=== PATIENT | female | born 1955 | race Caucasian/White ===

== ENCOUNTER 2019-10-02 12:59 | Outpatient (CLI) | payer BC, SELFPAY ==
[2019-10-02 13:10] LABS: Basophils Absolute Auto 0.1 K/mm3 (0.0-0.1); Basophils Percent Auto 1.1 % (0.2-1.2); Eosinophils Absolute Auto 0.1 K/mm3 (0-0.3); Eosinophils Percent Auto 1.3 % (0-4.4); Hematocrit 45.8 % (37.0-47.0); Immature Granulocyte Absolute 0.01 K/mm3 (0.00-0.031); Immature Granulocyte Percent A 0.1 % (0-0.5); Lymphocytes Absolute Auto 1.95 K/mm3 (0.9-3.2); Lymphocytes Percent Auto 25.9 % (18.3-44.2); Mean Corpuscular HGB Conc 32.8 g/dl (32-36); Mean Corpuscular Hemoglobin 31.5 pg (26-34); Mean Corpuscular Volume 96.2 fl (80-100); Mean Platelet Volume 9.4 fl (7.4-10.4); Monocytes Absolute Auto 0.5 K/mm3 (0.1-0.6); Neutrophils Absolute Auto 4.9 K/mm3 (1.3-6.7); Neutrophils Percent Auto 65.6 % (45.5-73.1); Platelet Count Result 239 k/mm3 (150-375); Red Blood Count 4.76 M/mm3 (4.2-5.4); Red Cell Distribution Width 13.2 % (11.5-14.5); White Blood Count 7.5 K/mm3 (4.5-10.0)
[2019-10-02 16:20] LABS: Iron 94 ug/dL (37-170)
[2019-10-02 16:30] LABS: Percent Iron Saturation 30 % (20-50)
== END 2019-10-02 13:00 | disposition home or self-care (01) ==
LOC: ANHLAB 13:01
PROVIDERS: PCP Family Medicine; Visit Provider Internal Medicine Hematology & Oncology
DX: D50.0 Iron deficiency anemia secondary to blood loss (chronic) (principal)
CPT/HCPCS: 36415; 82728; 83540; 83550; 85025

== ENCOUNTER 2020-05-07 13:52 | Outpatient (CLI) | payer BC, SELFPAY ==
--- NOTE | ~2020-05-07 | MM_ITS ---
EXAMINATION: MM screening [facility] BI w breonna HISTORY: Screening mammogram TECHNIQUE: Craniocaudal and mediolateral oblique 3-D tomosynthesis images were obtained and synthetic 2-D images were generated. CAD analysis was submitted and interpreted. COMPARISON: 05/01/2019, 04/17/2019, 04/12/2018, 03/22/2017 BREAST PARENCHYMAL COMPOSITION: There are scattered areas of fibroglandular density. FINDINGS: There is no evidence of suspicious mass, calcification, or architectural distortion to sugg est malignancy in either breast. There has been no suspicious interval change. IMPRESSION: 1. No mammographic evidence of malignancy. 2. Recommend routine screening mammography in one year. BI-RADS Category 1: Negative Reviewed, dictated and finalized at location A. BOTOMY PROGRAM COORDINATOR
== END 2020-05-07 13:53 | disposition home or self-care (01) ==
LOC: ANHIMG 13:55
PROVIDERS: PCP Family Medicine; Visit Provider Obstetrics & Gynecology
DX: Z12.31 Encounter for screening mammogram for malignant neoplasm of breast (principal)
CPT/HCPCS: 77063; 77067

== ENCOUNTER 2020-09-29 13:14 | Outpatient (CLI) | payer MEDICARE, OTHER, SELFPAY ==
[2020-09-29 13:37] LABS: Basophils Absolute Auto 0.1 K/mm3 (0.0-0.1); Eosinophils Absolute Auto 0.2 K/mm3 (0-0.3); Eosinophils Percent Auto 2.1 % (0-4.4); Hematocrit 46.9 % (37.0-47.0); Hemoglobin 15.6 g/dL (12.0-15.0); Immature Granulocyte Absolute 0.01 K/mm3 (0.00-0.031); Immature Granulocyte Percent A 0.1 % (0-0.5); Lymphocytes Absolute Auto 1.99 K/mm3 (0.9-3.2); Lymphocytes Percent Auto 28.4 % (18.3-44.2); Mean Corpuscular HGB Conc 33.3 g/dl (32-36); Mean Corpuscular Hemoglobin 31.3 pg (26-34); Mean Corpuscular Volume 94.2 fl (80-100); Mean Platelet Volume 9.7 fl (7.4-10.4); Monocytes Absolute Auto 0.4 K/mm3 (0.1-0.6); Monocytes Percent Auto 5.7 % (2.6-8.5); Neutrophils Absolute Auto 4.4 K/mm3 (1.3-6.7); Neutrophils Percent Auto 62.7 % (45.5-73.1); Platelet Count Result 229 k/mm3 (150-375); Red Blood Count 4.98 M/mm3 (4.2-5.4); Red Cell Distribution Width 13.1 % (11.5-14.5)
[2020-09-29 16:53] LABS: Iron 196 ug/dL (37-170)
[2020-09-29 17:04] LABS: Alanine Aminotransferase 17 U/L (4-35); Albumin Level 4.3 g/dL (3.5-5.1); Alkaline Phosphatase 64 U/L (38-126); Anion Gap 6 mmol/L (8-16); Aspartate Amino Transferase 22 U/L (14-36); Bilirubin,Total 0.6 mg/dL (0.2-1.3); Blood Urea Nitrogen 17 mg/dL (7-17); Carbon Dioxide 29 mmol/L (22-30); Chloride 103 mmol/L (98-107); Estimated Glomerular Filt Rate > 60; Glucose 90 mg/dL (65-105); Sodium 138 mmol/L (137-145)
[2020-09-29 17:15] LABS: Percent Iron Saturation 71 % (20-50)
== END 2020-09-29 13:15 | disposition home or self-care (01) ==
LOC: ANHLAB 13:17
PROVIDERS: PCP Family Medicine; Visit Provider Internal Medicine Hematology & Oncology
DX: D50.0 Iron deficiency anemia secondary to blood loss (chronic) (principal)
CPT/HCPCS: 36415; 80053; 82728; 83540; 83550; 85025

== ENCOUNTER 2020-12-10 13:08 | Outpatient (CLI) | payer MEDICARE, OTHER, SELFPAY ==
[2020-12-10 13:30] LABS: Basophils Absolute Auto 0.1 K/mm3 (0.0-0.1); Eosinophils Absolute Auto 0.2 K/mm3 (0-0.3); Eosinophils Percent Auto 2.1 % (0-4.4); Hematocrit 45.2 % (37.0-47.0); Hemoglobin 14.8 g/dL (12.0-15.0); Immature Granulocyte Absolute 0.01 K/mm3 (0.00-0.031); Immature Granulocyte Percent A 0.1 % (0-0.5); Lymphocytes Percent Auto 28.3 % (18.3-44.2); Mean Corpuscular HGB Conc 32.7 g/dl (32-36); Mean Corpuscular Hemoglobin 31.1 pg (26-34); Mean Platelet Volume 9.3 fl (7.4-10.4); Monocytes Absolute Auto 0.4 K/mm3 (0.1-0.6); Monocytes Percent Auto 5.5 % (2.6-8.5); Neutrophils Absolute Auto 4.4 K/mm3 (1.3-6.7); Platelet Count Result 232 k/mm3 (150-375); Red Blood Count 4.76 M/mm3 (4.2-5.4); Red Cell Distribution Width 12.9 % (11.5-14.5); White Blood Count 7.1 K/mm3 (4.5-10.0)
[2020-12-10 17:03] LABS: Iron 110 ug/dL (37-170)
[2020-12-10 17:08] LABS: Alanine Aminotransferase 22 U/L (4-35); Albumin Level 4.3 g/dL (3.5-5.1); Alkaline Phosphatase 67 U/L (38-126); Anion Gap 6 mmol/L (8-16); Aspartate Amino Transferase 23 U/L (14-36); Bilirubin,Total 0.8 mg/dL (0.2-1.3); Blood Urea Nitrogen 19 mg/dL (7-17); Calcium 9.6 mg/dL (8.4-10.2); Carbon Dioxide 27 mmol/L (22-30); Chloride 105 mmol/L (98-107); Estimated Glomerular Filt Rate > 60; Glucose 89 mg/dL (65-110); Potassium 3.8 mmol/L (3.4-5.0); Sodium 138 mmol/L (137-145)
[2020-12-10 17:37] LABS: Percent Iron Saturation 41 % (20-50)
== END 2020-12-10 13:09 | disposition home or self-care (01) ==
LOC: ANHLAB 13:12
PROVIDERS: PCP Family Medicine; Visit Provider Internal Medicine Hematology & Oncology
DX: D50.0 Iron deficiency anemia secondary to blood loss (chronic) (principal)
CPT/HCPCS: 36415; 80053; 82728; 83540; 83550; 85025

== ENCOUNTER 2021-05-13 09:53 | Outpatient (CLI) | payer MEDICARE, OTHER, SELFPAY ==
--- NOTE | ~2021-05-13 | MM_ITS ---
EXAMINATION: MM screening [facility] BI w breonna HISTORY: Screening mammogram TECHNIQUE: Craniocaudal and mediolateral oblique 3-D tomosynthesis images were obtained and synthetic 2-D images were generated. CAD analysis was submitted and interpreted. COMPARISON: 05/07/2020, 05/01/2019, 04/17/2019 BREAST PARENCHYMAL COMPOSITION: There are scattered areas of fibroglandular density. FINDINGS: There is no evidence of suspicious mass, calcification, or architectural distortion to sugg est malignancy in either breast. There has been no suspicious interval change. IMPRESSION: 1. No mammographic evidence of malignancy. 2. Recommend routine screening mammography in one year. BI-RADS Category 1: Negative Reviewed, dictated and finalized at location A. PROCEDURES
== END 2021-05-13 09:54 | disposition home or self-care (01) ==
LOC: ANHIMG 09:57
PROVIDERS: PCP Family Medicine; Visit Provider Obstetrics & Gynecology
DX: Z12.31 Encounter for screening mammogram for malignant neoplasm of breast (principal)
CPT/HCPCS: 77063; 77067

== ENCOUNTER 2021-06-09 15:08 | Outpatient (CLI) | payer MEDICARE, OTHER, SELFPAY ==
[2021-06-09 15:36] LABS: Basophils Absolute Auto 0.1 K/mm3 (0.0-0.1); Basophils Percent Auto 1.1 % (0.2-1.2); Eosinophils Absolute Auto 0.1 K/mm3 (0-0.3); Eosinophils Percent Auto 1.5 % (0-4.4); Hematocrit 48.3 % (37.0-47.0); Hemoglobin 15.4 g/dL (12.0-15.0); Immature Granulocyte Absolute 0.02 K/mm3 (0.00-0.031); Immature Granulocyte Percent A 0.3 % (0-0.5); Lymphocytes Percent Auto 31.8 % (18.3-44.2); Mean Corpuscular HGB Conc 31.9 g/dl (32-36); Mean Corpuscular Hemoglobin 31.2 pg (26-34); Mean Corpuscular Volume 97.8 fl (80-100); Mean Platelet Volume 9.4 fl (7.4-10.4); Monocytes Absolute Auto 0.4 K/mm3 (0.1-0.6); Monocytes Percent Auto 5.8 % (2.6-8.5); Neutrophils Absolute Auto 4.5 K/mm3 (1.3-6.7); Neutrophils Percent Auto 59.5 % (45.5-73.1); Platelet Count Result 234 k/mm3 (150-375); Red Blood Count 4.94 M/mm3 (4.2-5.4); Red Cell Distribution Width 13.1 % (11.5-14.5); White Blood Count 7.5 K/mm3 (4.5-10.0)
[2021-06-09 16:11] LABS: Iron 162 ug/dL (37-170)
[2021-06-09 16:17] LABS: Alanine Aminotransferase 22 U/L (4-35); Albumin Level 4.6 g/dL (3.5-5.1); Alkaline Phosphatase 70 U/L (38-126); Anion Gap 10 mmol/L (8-16); Aspartate Amino Transferase 23 U/L (14-36); Bilirubin,Total 0.7 mg/dL (0.2-1.3); Blood Urea Nitrogen 17 mg/dL (7-17); Calcium 10.1 mg/dL (8.4-10.2); Carbon Dioxide 28 mmol/L (22-30); Chloride 101 mmol/L (98-107); Estimated Glomerular Filt Rate > 60; Glucose 92 mg/dL (65-110); Sodium 139 mmol/L (137-145)
[2021-06-09 16:24] LABS: Percent Iron Saturation 55 % (20-50)
== END 2021-06-09 15:09 | disposition home or self-care (01) ==
LOC: ANHLAB 15:11
PROVIDERS: PCP Family Medicine; Visit Provider Internal Medicine Hematology & Oncology
DX: D50.0 Iron deficiency anemia secondary to blood loss (chronic) (principal)
CPT/HCPCS: 36415; 80053; 82728; 83540; 83550; 85025

== ENCOUNTER 2021-12-07 13:49 | Outpatient (CLI) | payer MEDICARE, OTHER, SELFPAY ==
[2021-12-07 14:08] LABS: Basophils Absolute Auto 0.1 K/mm3 (0.0-0.1); Basophils Percent Auto 1.1 % (0.2-1.2); Eosinophils Absolute Auto 0.1 K/mm3 (0-0.3); Eosinophils Percent Auto 1.2 % (0-4.4); Hemoglobin 14.8 g/dL (12.0-15.0); Immature Granulocyte Absolute 0.02 K/mm3 (0.00-0.031); Immature Granulocyte Percent A 0.3 % (0-0.5); Lymphocytes Absolute Auto 2.18 K/mm3 (0.9-3.2); Lymphocytes Percent Auto 29.1 % (18.3-44.2); Mean Corpuscular HGB Conc 32.2 g/dl (32-36); Mean Corpuscular Hemoglobin 31.2 pg (26-34); Mean Corpuscular Volume 96.8 fl (80-100); Mean Platelet Volume 9.3 fl (7.4-10.4); Monocytes Absolute Auto 0.5 K/mm3 (0.1-0.6); Monocytes Percent Auto 6.3 % (2.6-8.5); Neutrophils Absolute Auto 4.6 K/mm3 (1.3-6.7); Platelet Count Result 217 k/mm3 (150-375); Red Blood Count 4.75 M/mm3 (4.2-5.4); Red Cell Distribution Width 12.6 % (11.5-14.5); White Blood Count 7.5 K/mm3 (4.5-10.0)
[2021-12-07 14:41] LABS: Iron 108 ug/dL (37-170)
[2021-12-07 14:51] LABS: Percent Iron Saturation 36 % (20-50)
== END 2021-12-07 13:50 | disposition home or self-care (01) ==
LOC: ANHLAB 13:52
PROVIDERS: PCP Family Medicine; Visit Provider Internal Medicine Hematology & Oncology
DX: D50.0 Iron deficiency anemia secondary to blood loss (chronic) (principal)
CPT/HCPCS: 36415; 82728; 83540; 83550; 85025

== ENCOUNTER 2022-05-18 13:49 | Outpatient (CLI) | payer MEDICARE, OTHER, SELFPAY ==
--- NOTE | ~2022-05-18 | DEXA_ITS ---
Bone Density Report Name: VARINDER CRAWLEY Age: 66 Sex: Female Ethnicity: White Date of : 1955 Indication: postmenopausal; screening for osteoporosis; height loss; inflammatory bowel disease; history of glucocorticoids; secondary osteoporosis; Referring Provider: NINI MCCARTHY Study: Bone densitometry was performed. Exam Date: May 18, 2022 Accession number: [id number] Bone Density: Region BMD T-score Z-score Classification AP Spine(L1-L4) 1.195 1.3 3.2 Normal Femoral Neck (Right) 0.620 -2.1 -0.5 Osteopenia Total Hip (Right) 0.772 -1.4 -0.1 Osteopenia World Health Organization criteria for BMD impression classify patients as: Normal (T-score at or above -1.0), Osteopenia (T-score between -1.0 and -2.5), or Osteoporosis (T-score at or below -2.5). 10-year Fracture Risk(1): Major Osteoporotic Fracture 17% Hip Fracture 3.2% Reported Risk Factors: [place] (), Neck BMD=0.620, BMI=29.8, glucocorticoids, secondary osteoporosis (1) FRAX(R) Version 3.08. Fracture probability calculated for an untreated patient. Fracture probability may be lower if the patient has received treatment. Clinical Information Provided by Patient: Has taken Glucocorticoids Has secondary osteoporosis Has used the following medications: HRT (i.e. estrogen/hormone therapy), Vitamin D, Calcium Has the following medical conditions: Inflammatory bowel diseases Patient maximum height was 61 Menopause Age: 42 No regular weight bearing exercise Onset of menses at age 14 Number of children 1 Impression: The patient has low bone mass, based on the Right Femoral Neck T-score. The patient has an estimated ten-year risk of hip fracture of 3.2% and an estimated ten-year risk of major fracture of 17%, based on the WHO FRAX algorithm. The patient has risk factors, including: history of glucocorticoid therapy. Discussion: BONE DENSITY IS LOW AT ONE OR MORE SKELETAL SITES. THE PATIENT'S BMD AND CLINICAL RISK FACTORS CONTRIBUTE TO THIS PATIENT'S INCREASED RISK OF FRACTURE. This patient's lowest T-score is low at one or more skeletal sites. It meets the World Health Organization's (WHO) criteria for ?low bone mass? (T-score between -1.0 and -2.5). The patient's 10-year risk of hip fracture as calculated by FRAX exceeds the threshold where pharmacological therapy is recommended by the National Osteoporosis Foundation (NOF). However, all treatment decisions require clinical judgment and consideration of individual patient factors, including patient preferences, comorbidities, previous drug use, risk factors not captured in the FRAX model (e.g., frailty, falls, vitamin D deficiency, increased bone turnover, interval significant decline in bone density) and possible under or overestimation of fracture risk by FRAX. The patient should follow a healthful lifestyle (
--- NOTE | ~2022-05-18 | MM_ITS ---
EXAMINATION: MM screening [facility] BI w breonna HISTORY: Screening mammogram TECHNIQUE: Craniocaudal and mediolateral oblique 3-D tomosynthesis images were obtained and synthetic 2-D images were generated. CAD analysis was submitted and interpreted. COMPARISON: 05/13/2021, 05/07/2020 bilateral screening mammogram examinations BREAST PARENCHYMAL COMPOSITION: There are scattered areas of fibroglandular density. FINDINGS: There is no evidence of suspicious mass, calcification, or architectural distortion to sugg est malignancy in either breast. There has been no suspicious interval change. IMPRESSION: 1. No mammographic evidence of malignancy. 2. Recommend routine screening mammography in one year. BI-RADS Category 1: Negative Reviewed, dictated and finalized at location A. TIC MAINTENANCE TECHNICIAN
== END 2022-05-18 13:50 | disposition home or self-care (01) ==
PROVIDERS: PCP Family Medicine; Visit Provider Obstetrics & Gynecology
DX: Z12.31 Encounter for screening mammogram for malignant neoplasm of breast (principal); Z78.0 Asymptomatic menopausal state; Z95.2 Presence of prosthetic heart valve; M85.851 Other specified disorders of bone density and structure, right thigh
CPT/HCPCS: 77063; 77067; 77080

== ENCOUNTER 2022-09-07 13:05 | Outpatient (CLI) | payer MEDICARE, OTHER, SELFPAY ==
[2022-09-07 13:21] LABS: Basophils Absolute Auto 0.1 K/mm3 (0.0-0.1); Basophils Percent Auto 0.7 % (0.2-1.2); Eosinophils Absolute Auto 0.1 K/mm3 (0-0.3); Hematocrit 44.1 % (37.0-47.0); Hemoglobin 14.6 g/dL (12.0-15.0); Immature Granulocyte Absolute 0.02 K/mm3 (0.00-0.031); Immature Granulocyte Percent A 0.2 % (0-0.5); Lymphocytes Absolute Auto 2.02 K/mm3 (0.9-3.2); Lymphocytes Percent Auto 24.7 % (18.3-44.2); Mean Corpuscular HGB Conc 33.1 g/dl (32-36); Mean Corpuscular Hemoglobin 31.6 pg (26-34); Mean Corpuscular Volume 95.5 fl (80-100); Mean Platelet Volume 9.5 fl (7.4-10.4); Monocytes Absolute Auto 0.4 K/mm3 (0.1-0.6); Monocytes Percent Auto 5.1 % (2.6-8.5); Neutrophils Absolute Auto 5.6 K/mm3 (1.3-6.7); Neutrophils Percent Auto 68.3 % (45.5-73.1); Platelet Count Result 241 k/mm3 (150-375); Red Blood Count 4.62 M/mm3 (4.2-5.4); White Blood Count 8.2 K/mm3 (4.5-10.0)
[2022-09-07 15:03] LABS: Iron 87 ug/dL (37-170)
[2022-09-07 15:07] LABS: Alanine Aminotransferase 20 U/L (6-35); Albumin Level 4.4 g/dL (3.5-5.1); Alkaline Phosphatase 65 U/L (38-126); Anion Gap 5 mmol/L (8-16); Aspartate Amino Transferase 20 U/L (14-36); Bilirubin,Total 0.7 mg/dL (0.2-1.3); Blood Urea Nitrogen 19 mg/dL (7-17); Calcium 9.4 mg/dL (8.4-10.2); Carbon Dioxide 30 mmol/L (22-30); Chloride 102 mmol/L (98-107); Estimated Glomerular Filt Rate > 60; Glucose 90 mg/dL (65-110); Potassium 3.9 mmol/L (3.4-5.0); Sodium 137 mmol/L (137-145)
[2022-09-07 15:12] LABS: Percent Iron Saturation 30 % (20-50)
== END 2022-09-07 13:06 | disposition home or self-care (01) ==
LOC: ANHLAB 13:08
PROVIDERS: PCP Family Medicine; Visit Provider Internal Medicine Hematology & Oncology
DX: D50.0 Iron deficiency anemia secondary to blood loss (chronic) (principal)
CPT/HCPCS: 36415; 80053; 82728; 83540; 83550; 85025

== ENCOUNTER 2023-09-12 14:04 | Outpatient (CLI) | payer MEDICARE, OTHER, SELFPAY ==
[2023-09-12 14:24] LABS: Hematocrit 45.5 % (37.0-47.0); Mean Corpuscular Hemoglobin 31.4 pg (26-34); Mean Corpuscular Volume 95.2 fl (80-100); Mean Platelet Volume 9.4 fl (7.4-10.4); Platelet Count Result 241 k/mm3 (150-375); Red Blood Count 4.78 M/mm3 (4.2-5.4); Red Cell Distribution Width 12.5 % (11.5-14.5); White Blood Count 7.9 K/mm3 (4.5-10.0)
[2023-09-12 16:32] LABS: Iron 86 ug/dL (37-170)
[2023-09-12 16:35] LABS: Anion Gap 10 mmol/L (4-12); Blood Urea Nitrogen 21 mg/dL (7-17); Calcium 9.9 mg/dL (8.4-10.2); Carbon Dioxide 25 mmol/L (22-30); Chloride 107 mmol/L (98-107); Estimated Glomerular Filt Rate > 60; Glucose 89 mg/dL (65-110); Potassium 3.9 mmol/L (3.4-5.0); Sodium 142 mmol/L (137-145)
[2023-09-12 16:42] LABS: Percent Iron Saturation 32 % (20-50)
== END 2023-09-12 14:05 | disposition home or self-care (01) ==
LOC: ANHLAB 14:07
PROVIDERS: PCP Family Medicine; Visit Provider Internal Medicine Hematology & Oncology
DX: D50.0 Iron deficiency anemia secondary to blood loss (chronic) (principal)
CPT/HCPCS: 36415; 80048; 82728; 83540; 83550; 85027

== ENCOUNTER 2023-10-03 13:04 | Outpatient (CLI) | payer MEDICARE, OTHER, SELFPAY ==
--- NOTE | ~2023-10-03 | MM_ITS ---
EXAMINATION: MM screening [facility] BI w breonna HISTORY: Screening mammogram TECHNIQUE: Craniocaudal and mediolateral oblique 3-D tomosynthesis images were obtained and synthetic 2-D images were generated. CAD analysis was submitted and interpreted. COMPARISON: 05/18/2022, 05/13/2021 bilateral screening mammogram examination BREAST PARENCHYMAL COMPOSITION: There are scattered areas of fibroglandular density. FINDINGS: There is no evidence of suspicious mass, calcification, or architectural distortion to sugg est malignancy in either breast. There has been no suspicious interval change. IMPRESSION: 1. No mammographic evidence of malignancy. 2. Recommend routine screening mammography in one year. BI-RADS Category 1: Negative Reviewed, dictated and finalized at location A.
== END 2023-10-03 13:05 | disposition home or self-care (01) ==
LOC: ANHIMG 13:06
PROVIDERS: PCP Family Medicine; Visit Provider Obstetrics & Gynecology
DX: Z12.31 Encounter for screening mammogram for malignant neoplasm of breast (principal)
CPT/HCPCS: 77063; 77067

== ENCOUNTER 2023-10-26 11:43 | Outpatient (CLI) | payer MEDICARE, OTHER, SELFPAY ==
[2023-10-31 15:59] LABS: Calprotectin, Stool 137 mcg/g
== END 2023-10-26 11:44 | disposition home or self-care (01) ==
LOC: ANHLAB 11:45
PROVIDERS: PCP Family Medicine; Visit Provider Nurse Practitioner
DX: K58.0 Irritable bowel syndrome with diarrhea (principal); Z87.19 Personal history of other diseases of the digestive system
CPT/HCPCS: 83993

== ENCOUNTER 2023-11-16 07:00 | Outpatient (NON) | payer MEDICARE, OTHER, SELFPAY | END 2023-11-16 07:01 | disposition home or self-care (01) | LOC: ANHLAB 11-17 09:51 | PROVIDERS: PCP Family Medicine; Visit Provider Internal Medicine Gastroenterology | DX: K52.9 Noninfective gastroenteritis and colitis, unspecified (principal) | CPT/HCPCS: 88305 ==

== ENCOUNTER 2023-11-16 10:18 | Day surgery (SDC) | payer MEDICARE, OTHER, SELFPAY ==
[2023-11-10 09:00] VITALS: BMI 27.1
[2023-11-11 09:35] VITALS: BMI 26.6
--- NOTE | 2023-11-16 07:40 | WPDANESEPPF ---
Anes - Initial Pre Proc Eval Procedure: Operation Date: 11/16/23 13:00 Proposed Procedures p Diagnostic Colonoscopy - Rohan Barbosa MD <Clark Dunn, DO - Last Filed: 11/16/23 14:16> Date/Time: 11/16/23 07:40 <Clark Dunn, DO - Last Filed: 11/16/23 14:16> Surgeon: Rohan Barbosa MD <Clark Dunn, DO - Last Filed: 11/16/23 14:16> Pre Op Diagnosis: Noninfective Gastroenteritis and Colitis, IBS <Clark Dunn DO - Last Filed: 11/16/23 14:16> Patient Data Age: 68 Gender: F Height: 1.52 m Weight: 62 kg <Clark Dunn, DO - Last Filed: 11/16/23 14:16> Allergies Allergy/AdvReac Type Severity Reaction Status Date / Time cinnamon Allergy Intermediate oral mouth Verified 11/16/23 11:39 sores and swelling ADULT TOOTHPASTE Allergy Severe SWOLLEN Uncoded 11/16/23 11:39 LIPS AND TONGUE <Clark Dunn, DO - Last Filed: 11/16/23 14:16> Home Medications Medication Instructions Recorded Confirmed Type losartan 100 1 tablet PO DAILY 02/05/21 11/16/23 History mg-hydrochlorothiazide 12.5 mg tablet omeprazole 20 mg capsule,delayed 20 mg PO DAILY 02/05/21 11/16/23 History release simvastatin 20 mg tablet 20 mg PO DAILY 02/05/21 11/16/23 History folic acid 1 mg tablet 1 mg PO DAILY 10/07/21 11/16/23 History verapamil 180 mg tablet,extended 180 mg PO HS 10/07/21 11/16/23 History release eluxadoline 75 mg tablet (Viberzi) 75 mg PO BID #180 tabs 10/20/23 11/16/23 Rx ADVANCED Calcium 1 tablet PO DAILY 11/11/23 11/16/23 History glucosamine 750 mu-jwnzzpnxvjw-zcd 1 tablet PO DAILY 11/11/23 11/16/23 History no1 644 mg-C 30 mg-fritz 1 mg tablet (Osteo Bi-Flex Triple Strength) multivitamin l-pqzrgfii-nnpjmlq 1 tablet PO DAILY 11/11/23 11/16/23 History fumarate 18 mg-vitamin K 25 mcg tablet omega-3 fatty acids 150 mg-fish 1 cap PO DAILY 11/11/23 11/16/23 History oil 400 mg capsule (Fish Oil Pearls) <Clark Dunn DO - Last Filed: 11/16/23 14:16> Patient hx anesthesia problems: none <Seven Leiva CRNA - Last Filed: 11/16/23 12:54> Family hx anesthesia problems: none <Seven Leiva CRNA - Last Filed: 11/16/23 12:54> Results Review: All pre-operative results and documents have been reviewed as part of the pre-operative evaluation. <Clark Dunn DO - Last Filed: 11/16/23 14:16> PMFSH Past Medical History Medical History: Medical History GERD (gastroesophageal reflux disease) Hiatal hernia HLD (hyperlipidemia) Hypertension Irritable bowel syndrome with diarrhea <Clark Dunn DO - Last Filed: 11/16/23 14:16> Surgical History Surgical History: Surgical History History of tubal ligation <Clark Dunn DO - Last Filed: 11/16/23 14:16> Social History Social History: Social History Smoking status: Never smoker Alcohol intake: current Drinks per week: 0 Alcohol use details: RARE, OCCASIONAL HOLIDAY Substance use: never Substance use type: does not use Living arrangements: alone Spiritual care concerns: No <Clark Dunn DO - Last Filed: 11/16/23 14:16> Anes - Eval Final PreProcedure Day of Procedure 11/16/23 07:40 <Clark Dunn DO - Last Filed: 11/16/23 14:16> Patient weight: overweight <Clark Dunn DO - Last Filed: 11/16/23 14:16> Heart: regular rate and rhythm <Clark Dunn DO - Last Filed: 11/16/23 14:16> Lungs: clear to auscultation <Clark Dunn DO - Last Filed: 11/16/23 14:16> Airway: Mallampati scale class II <Clark Dunn DO - Last Filed: 11/16/23 14:16> Neurological: alert and oriented <Amber Randall
[2023-11-16 11:53] VITALS: BP 131/88; PULSE 64; RESP 16; TEMP 36.6; O2SAT 99; BMI 26.4
[2023-11-16] MEDS: LACTATED RINGERS 1,000 ML 150 ML IV CONT (12:18)
--- NOTE | 2023-11-16 13:00 | WPDHPUPDATE1 ---
History and Physical Update Update Date/Time: 11/16/23 13:00 History and Physical has been reviewed, including an updated exam of the patient. There are NO changes in the patient's condition. Risks, benefits, and alternatives have been discussed and questions answered. Patient agrees to proceed with procedure.
[2023-11-16 14:11] VITALS: BP 111/74; PULSE 65; RESP 14; O2SAT 98
--- NOTE | 2023-11-16 14:16 | WPDANESPN ---
Anes - Prog Note Post-Op Date/Time: 11/16/23 14:16 Cardiovascular status: normal Respiratory status: normal Airway patency: baseline Mental status: baseline Post-Op hydration status: normal Vital Signs: Last Vital Signs Temp 36.6 C 11/16/23 11:53 Pulse 64 11/16/23 11:53 Resp 16 11/16/23 11:53 BP 131/88 11/16/23 11:53 Pulse Ox 99 11/16/23 11:53 O2 Del Method Room Air 11/16/23 11:53 Pain Score (VAS): 0 I/O: Intake & Output 11/15/23 11/16/23 11/16/23 23:59 07:59 15:59 Intake Total 300 Balance 300 Post-procedural complaints: none Patient Feedback: Patient satisfied with anesthetic care. Other Findings: Patient vital signs back to baseline. Patient denies nausea and vomiting. Patient's pain under control. Patient OK for discharge.
[2023-11-16 14:21] VITALS: BP 130/84; PULSE 62; RESP 16; O2SAT 98
[2023-11-16 14:31] VITALS: BP 141/89; PULSE 65; RESP 20; O2SAT 99
== END 2023-11-16 14:47 | disposition home or self-care (01) ==
PROVIDERS: PCP Family Medicine; Visit Provider Internal Medicine Gastroenterology
PROC: 0DJD8ZZ Inspection of Lower Intestinal Tract, Via Natural or Artificial Opening Endoscopic (ICD-10-PCS; CPT 45378; principal; 2023-11-16 13:00)
DX: K51.90 Ulcerative colitis, unspecified, without complications (principal); D12.5 Benign neoplasm of sigmoid colon
CPT/HCPCS: 45385; 45380

== ENCOUNTER 2024-09-18 12:45 | Outpatient (CLI) | payer MEDICARE, OTHER, SELFPAY ==
[2024-09-18 13:20] LABS: Basophils Percent Auto 0.5 % (0.2-1.2); Eosinophils Absolute Auto 0.1 K/mm3 (0-0.3); Hematocrit 43.6 % (37.0-47.0); Hemoglobin 14.4 g/dL (12.0-15.0); Immature Granulocyte Absolute 0.01 K/mm3 (0.00-0.031); Immature Granulocyte Percent A 0.1 % (0-0.5); Lymphocytes Absolute Auto 2.06 K/mm3 (0.9-3.2); Lymphocytes Percent Auto 28.3 % (18.3-44.2); Mean Corpuscular Hemoglobin 31.4 pg (26-34); Mean Platelet Volume 9.5 fl (7.4-10.4); Monocytes Absolute Auto 0.4 K/mm3 (0.1-0.6); Neutrophils Absolute Auto 4.7 K/mm3 (1.3-6.7); Neutrophils Percent Auto 64.1 % (45.5-73.1); Platelet Count Result 219 k/mm3 (150-375); Red Blood Count 4.59 M/mm3 (4.2-5.4); Red Cell Distribution Width 13.2 % (11.5-14.5); White Blood Count 7.3 K/mm3 (4.5-10.0)
--- OUTSIDE RECORDS SUMMARY | 2024-09-18 13:49 | XMS_ITS | Clinical Summary ---
Author Organization [facility] Address [address] [place] [address] Care Team Providers Care Hand Fretted Instrument Maker Name Role Phone Kameron Babin MD Primary Care Provider [phone] Allergies Active Allergy Reactions Criticality Noted Date Comments Flavoring Agent Rash,Swelling Low 07/04/2018 Medications verapamil (CALAN SR) 180 mg Sustained Release tablet TK 1 T PO QD WF 1 05/31/2018 Active simvastatin (ZOCOR) 20 mg tablet TK 1 T PO QD HS 2 05/31/2018 Active omeprazole (PriLOSEC) 20 mg Capsule, Delayed Release(E.C.) TK 1 C PO QD 0 05/31/2018 Active losartan-hydroCH LOROthiazide (HYZAAR) 100-12.5 mg tablet TK 1 T PO QD 3 05/31/2018 Active folic acid (FOLVITE) 1 mg tablet TK 1 T PO QD 2 05/31/2018 Active VIBERZI 75 mg Tablet TK 1 T PO BID 5 02/01/2019 Active omega-3 acid ethyl esters (LOVAZA) 1 gram Capsule Take 1,000 mg by mouth. Active Calcium Carbonate-Vit D3-Min 600 mg calcium- 400 unit Tablet Take 1 Tablet by mouth. Active polycarbophil calcium (FIBERCON) 625 mg tablet Take 625 mg by mouth daily. Active Docosahexanoic Acid-Eicosapent 120-180 mg Capsule Take 1,000 mg by mouth. Active Glucosamine-Rocael droitin 250-200 mg Tablet Take 1 Tablet by mouth. Active multivitamin (DAILY-JUAN DIEGO) tablet Take 1 Tablet by mouth daily. Active Active Problems Problem Noted Date Diagnosed Date Ulcerative colitis 10/08/2019 Iron deficiency anemia 07/04/2018 Encounters Date Type Department Care Team Description 08/08/2024 External Device Data [facility] ABSTRACTION Provider, Abstract 08/01/2024 External Device Data [facility]CTION Provider, Abstract 07/31/2024 External Device Data [facility] Provider, Abstract 07/28/2024 External Device Data [facility] Provider, Abstract 07/28/2024 External Device Data [facility] [facility] Provider, Abstract 07/25/2024 External Device Data [facility] Provider, Abstract 07/25/2024 External Device Data [facility] Provider, Abstract 07/11/2024 External Device Data [facility] Provider, Abstract from Last 3 Months Social History Tobacco Use Types Packs/Day Years Used Date Smoking Tobacco: Former Cigarettes 0 07/04/1961 - 07/04/1968 Smokeless Tobacco: Never Tobacco Cessation:Counseling Given: Not Answered Comments No Sex and Gender Information Value Date Recorded Sex Assigned at Not on file 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 Gender Identity Not on file Sexual Orientation Not on file Last Filed Vital Signs Vital Sign Reading Time Taken Comments Blood Pressure 135/85 09/20/2023 1:07 PM CDT Pulse 71 09/20/2023 1:04 PM CDT Temperature 36.9 C (98.5 F) 09/20/2023 1:04 PM CDT Respiratory Rate 18 09/20/2023 1:04 PM CDT Oxygen Saturation 94% 09/20/2023 1:04 PM CDT Inhaled Oxygen Concentration - - Weight 61.2 kg (135 lb) 09/20/2023 1:04 PM CDT Height 152.4 cm (5') 12/15/2021 2:07 PM CDT Body Mass Index 26.37 12/15/2021 2:07 PM CDT Plan of Treatment Upcoming Encounters Date Type Department Care Team (Late st Contact Info) Description 09/25/2024 1:00 PM CDT Office Visit [facility] Oncology and Hematology - [address] [place] [address] Asael Tirado MD [address] [facility] [address] [place] [address] Health Maintenance Due Date Last Done Comments Pre-Diabetes and Diabetes Screening 1955 DTAP/TDAP/TD VACCINES (1 - Tdap) 1974 Traditional Medicare (ACO) A nnual Wellness Visit 1974 COLORECTAL SCREENING 2000 Colorectal Cancer Screening 2000 FIT-DNA Q 3 years 2000 FIT/FOBT Q 1 year 2000 Flex Sig/CT Colonography Q 5 years 2000 PNEUMOCOCCAL VACCINE 50+ YEA RS (1 of 1 - PCV) 2005 ZOSTER VACCINE (1 of 2) 2005 INFLUENZA VACCINE (#1) 2023 02/03/2015 COVID-19 Vaccine (3 - 2023-2 5 season) 2024 08/29/2020, 08/05/2020 BREAST CANCER SCREENING 10/02/2024 10/03/19 24, 10/03/2023, 05/18/2022, Additional history exists OSTEOPOROSIS SCREENING 05/18/2027 05/18/2022 RSV VACCINE (60+ or ) (1 - 1-dose 75+ series) 2030 Insurance MEDICARE PART A AND B GENERIC PAYOR MEDICARE PART A AND B GENERIC PAYOR Care Teams Hand Fretted Instrument Maker Relationship Specialty Start Date End Date Kameron Babin MD [address] [place], [place] [id number] PCP - General Family Practice 06/30/18
--- OUTSIDE RECORDS SUMMARY | 2024-09-18 13:49 | XMS_ITS | Clinical Summary ---
Author Organization [facility] Address [address] [facility] [address] [place] [address] Phone Care Team Providers Care Contour Band Saw Operator Vertical Name Role Phone Kameron Babin MD Unavailable [phone] Rohan Sawyer DO Unavailable [phone] Tonya Hackett APRN, [employer] Unavailable [phone] Allergies Active Allergy Reactions Criticality Noted Date Comments Cinnamon Hives,Swelling High 10/09/2015 Medications omeprazole (PRILOSEC) 20 MG CAPSULE DELAYED RELEASE Take 20 mg by mouth daily. Active verapamil (,CALAN, ISOPTIN,) 20 mg Tablet Take 40 mg by mouth 3 times daily. Active simvastatin (ZOCOR) 20 MG Tablet Take 20 mg by mouth every evening. Active fish oil-omega-3 fatty acids 1000 MG Capsule Take 1,000 mg by mouth daily. Active calcium carbonate-vitami n D 600-400 MG-UNIT Tablet Take 1 Tab by mouth daily. Active Glucosamine-Rocael droitin 250-200 MG Tablet Take 1 Tab by mouth 2 times daily. Active verapamil (COVERA HS) 180 MG CAPSULE SR 24 HR Take 180 mg by mouth daily. Active Meloxicam 15 MG Tablet Take 15 mg by mouth daily. Active Mesalamine 0.375 GM CAPSULE SR 24 HR Take by mouth. Active losartan potassium-hydroc hlorothiazide (HYZAAR) 100-25 MG Tablet Take 1 Tab by mouth daily. Active folic acid (FOLVITE) 1 MG Tablet Take 1 Tab by mouth daily. 90 Tab 3 12/16/2015 Active folic acid (FOLVITE) 1 MG Tablet Take 1 Tab by mouth daily. 30 Tab 3 01/05/2016 Active sulfaSALAzine (AZULFIDINE) 500 MG Tablet Take 2 Tabs by mouth 3 times daily. 180 Tab 2 09/09/2017 Active Immunizations Immunization Administration Dates Next Due Covid-19, Mrna, Lnp-s, Pf, 30 Mcg/0.3 Ml Dose (P fizer) 08/29/2020,08/05/2020 Influenza Vaccine greater than 3 yrs 02/03/2015 Family History Medical History Relation Name Comments Cancer Father Heart Disease Father Hypertension Mother Cancer Paternal Uncle 1 throat Cancer Paternal Uncle 2 ?? 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 Not on file Not on file Not on file Last Filed Vital Signs Vital Sign Reading Time Taken Comments Blood Pressure 120/74 10/09/2015 2:00 PM CDT Pulse 65 10/09/2015 2:00 PM CDT Temperature 35.8 C (96.5 F) 10/09/2015 2:00 PM CDT Respiratory Rate 14 10/09/2015 2:00 PM CDT Oxygen Saturation 96% 10/09/2015 2:00 PM CDT Inhaled Oxygen Concentration - - Weight 62.7 kg (138 lb 3.2 oz) 10/09/2015 2:00 P M CDT Height 157.5 cm (5' 2 ) 10/09/2015 2:00 PM CDT Body Mass Index 25.28 10/09/2015 2:00 PM CDT Plan of Treatment Health Maintenance Due Date Last Done Comments DEXA Bone Density 1955 Hepatitis C Virus (HCV) Screening 1955 TdaP Immunization 1955 Cologuard 2005 Immunochemical Fecal Occult Blood 2005 Mammogram 2005 Zoster Immunization (2 of 3) 05/02/2016 03/07/2016 Pneumococcal Immunization (50+ years) (2 of 2 - PCV) 06/20/2017 06/20/2016, 01/29/2015 Influenza Immunization (#1) 2024 03/0 08/2019, 06/30/2018, 02/17/2017, Additional history exists SARS-COV-2 Immunization ( season) 2024 03/05/2021, 08/29/2020, 08/05/2020 Colonoscopy 05/01/2025 05/01/2015 Colorectal Cancer Screening 05/01/2025 Respiratory Syncytial Virus (RSV) Immunization (Adult) (1 - 1-dose 75+ series) 2030 05/01/2015 Pneumococcal Immunization Combined Discontinued 06/20/2016, 01/29/2015 Hepatitis B Immunization Aged Out No longer eligible based on patient's age to complete this topic Meningococcal Immunization (ACWY) Aged Out No longer eligible based on patient's age to complete this topic Rotavirus Immunization Aged Out No lo nger eligible based on patient's age to complete this topic Procedures Procedure Name Priority Date/Time Associated Diagnosis Comments COLONOSCOPY Routine 05/01/2015 from Last 3 Months or Most Recently Relevant to Health Maintenance Results * COLONOSCOPY (05/01/2015) Kameron Babin MD PROCEDURE/MINOR SURGICAL ORD ERABLES Final Result from Last 3 Months or Most Recently Relevant to Health Maintenance Insurance Care Teams Contour Band Saw Operator Vertical Relationship Specialty Start Date End Date Kameron Babin MD [address] [place] [id number] Family Medicine 10/09/15 Rohan Sawyer DO [address] [place] [id number] Gastroenterology 10/09/15 Tonya Hackett, GUSTAVO, [employer] [address] [place] [id number] Nurse Practitioner Advanced Practice Nurse 10/09/15
--- OUTSIDE RECORDS SUMMARY | 2024-09-18 13:49 | XMS_ITS | Data Portability ---
Author Organization [place] - [facility] [email or web address], Main Office Address [address] [place] [address] Care Team Providers Care Biology Laboratory Assistant Name Role Phone DONN CHAPIN Primary Care Provider DONN CHAPIN Referring Provider [phone] Assessment Encounter Date Assessment Date Assessment LastModified by Organization Details LastModified Time 11/29/2022 11/29/2022 HPI: Patient returns. She is here for a 5 year routine x-ray surveillance of her left total hip arthroplasty. She is now 6 years out in total. Left hip is doing well. In October patient started having pain in her left thigh. At times it was rather severe. She is an extremely active individual and is always cleaning the house or doing other activities. She has a longstanding history of chronic low back pain. She notes that on days where she has cleaning the entire house by the end of the day her back is very painful. Symptoms in the left leg 2 weeks ago went away completely. At this point she is having some symptoms in the right leg. She will get pain radiates down the thigh into the lower leg. Occasionally she will get tingling in the same distribution area. She has a history out blood pressure and was advised not to take anti-inflammato olga. This point her symptoms are intermittent and mild. Again she has a history of low back pain but knows history of radicular symptoms. Physical exam: 67-year-old female alert pleasant. She walks well. She walks upright with a normal gait. She is 4 ft 11 141 lb. Both hips have full range of motion without discomfort. She has ehcg-ms-brinddr e tenderness over both trochanteric bursae to palpation. Mild weakness with abductor testing lateral position both hips. She has normal sensation to both lower extremities light touch. She has motor function to her right lower extremity without any deficits. 2+ knee jerk and ankle jerk bilaterally. Impression: Patient's left total hip arthroplasty which is 6 years out looks excellent on the x-rays. She has no evidence of arthritic changes in right hip x-rays today well. I discussed the patient that her symptoms most likely are being referred from her back. The pelvis does show degenerative changes in her low back and again patient has a history of low back pain especially after a long day of activities. I discussed treatment options with her. Again she is trying to avoid anti-inflammato olga, we talked about using a Medrol Dosepak to see if this might give her some improvement of her symptoms. I did offer her formal physical therapy for her low back as well as her hip bursitis she declined that today. She wished to try the steroids see what improvement she gets from that and then proceed accordingly. I think this is reasonable. If her symptoms do not improve she will call will set up physical therapy. We will see her back in another 5 years for routine x-ray surveillance of the left hip. [email or web address] Not available 11/29/2022 16:11:44 Plan of Treatment Reminders Order Date Submit Date Provider Last Modified By Organization Details Last Modified Time Details Appointments None recorded. Lab None recorded. Referral None recorded. Procedures None recorded. Surgeries None recorded. Imaging XR, hip + pelvis, bilateral 2022 023 [email or web address] [facility] [place], [address], [place], [address], 3 17:56:00 Medication Orders Medrol (Jamey) 4 mg tablets in a dose pack 2022 023 [email or web address] [id number], [address] [facility], [place], [place], [id number], 16:12:01 Patient TargetsNo targets recorded. Patient InstructionsNo instructions recorded. Reason for Referral None Reported. Results Created Date Observation Date Name Description Value Unit Range Abnormal Flag Note LastModifiedBy Organization Detail LastModifiedTime 11/30/19 23 XR, hip + pelvi s, bilat eral No observ ation record ed. [email or web address] [facility] [place] [address], [place], [address], 11/29/2022 16:08:05 Result Notes None recorded. 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 Procedures Surgical History None recorded. Imaging Results Imaging Date Name Status LastModified by Organiz ation Details LastModified Time 11/29/2022 XR, hip + pelvis, bilateral completed [email or web address] [facility] [place] [address], [place], [address], 11/29/2022 16:08:05 Procedure Notes None recorded. Medical Equipment None Reported. Allergies No known drug allergies Medications Name Sig Start Date Stop Date Status Note LastModified by Organization Details LastModified Time celecoxib 200 mg capsule 11/29 completed Not Available Not Available Not Available sulfasalazi ne 500 mg tablet 11/29 completed Not Available Not Available Not Available polyethylen e glycol 3350 17 gram oral powder packet MIX 1 PACKET DIRECTED AND TK PO QAM 11/29 completed Not Available Not Available Not Available meloxicam 15 mg tablet TK 1 T PO QD 11/29 completed Not Available Not Available Not Available prednisone 20 mg tablet TK 3 TS PO D FOR 5 DAYS 11/29 completed Not Available Not Available Not Available verapamil ER (SR) 180 mg tablet,exte nded release TAKE 1 TABLET BY MOUTH EVERY EVENING active Not Available Not Available No t Available oxycodone-a cetaminophe n 5 mg-325 mg tablet 11/29 completed Not Available Not Available Not Available simvastatin 20 mg tablet TAKE 1 TABLET BY MOUTH EVERY EVENING active Not Available Not Available No t Available omeprazole 20 mg capsule,del ayed release TAKE 1 CAPSULE BY MOUTH EVERY EVENING active Not Available Not Available No t Available folic acid 1 mg tablet TAKE 1 TABLET BY MOUTH EVERY DAY active Not Available Not Available No t Available methylpredn isolone 4 mg tablets in a dose pack FOLLOW PACKAGE DIRECTION S active Not Available Not Available No t Available enoxaparin 40 mg/0.4 mL subcutaneou s syringe 11/29 completed Not Available Not Available Not Available Pneumovax-2 3 25 mcg/0.5 mL injection syringe ADM 0.5ML IM UTD 11/29 completed Not Available Not Available Not Available Prilosec OTC 20 mg tablet,cali yed release TK ONE T PO D 11/29 completed Not Available Not Available Not Available nitrofurant oin monohydrate /macrocryst als 100 mg capsule 11/29 completed Not Available Not Available Not Available losartan 100 mg-hydrochl orothiazide 12.5 mg tablet TAKE 1 TABLET BY MOUTH EVERY MORNING active Not Available Not Available No t Available Zostavax (PF) 19,400 unit/0.65 mL subcutaneou s suspension ADM 0.65ML SC UTD 11/29 completed Not Available Not Available Not Available Apriso 0.375 gram capsule,ext ended release TK 1 C PO QD IN THE MORNING 11/29 completed Not Available Not Available Not Available Senexon-S 8.6 mg-50 mg tablet TK 2 TABLETS PO BID 11/29 completed Not Available Not Available Not Available Flulaval Quad 0712-9127 60 mcg (15 mcg x 4)/0.5 mL IM suspension ADM 0.5ML IM UTD 11/29 completed Not Available Not Available Not Available Vitals Date Recorded Body height Body mass index (BMI) Body weight Provider Name and Address Organization Details Last Updated DateTime 11/29/2022 149.86 cm 28.5 kg/m2 16357.52 g BRETT Trujillo [employer] 11/29/2022 15:25:40 Social History Question Answer Notes LastModified by Organizat ion Details LastModified Time Tobacco Smoking Status Never Smoker BRETT Trujillo [place] [employer] 11/29/2022 15:11:09 What Is Your Level Of Alcohol Consumption? None [email or web address] Information not available 11/29/2022 Sex: Unknown Functional Status None recorded. Mental Status None recorded. Family History Relationship Description Onset Age of this Age Resolved Age Notes LastModified by Organization Details LastModified Time Father Heart disease [email or web address] Not available 2022 15:11:22 Father Family history of malignant neoplasm [email or web address] Not available 2022 15:16:32 Father Hypertensive disorder [email or web address] Not available 2022 15:16:59 Sister Family history of stroke [email or web address] Not available 2022 15:16:19 Mother Hypertensive disorder Not available 2022 15:16:59 Paternal Grandmother Diabetes mellitus [email or web address] Not available 2022 15:17:16 Medical History Condition Response ARTHRITIS Y HYPERTENSION Y Gynecological HistoryNo gynecological history recorded. Obstetrics History GPAL:G 0 P 0 0 0 0 Past Encounters Encounter ID Performer Location Encounter Start Date Encounter Closed Date Diagnosis/Indication Diagnosis SNOMED-CT Code Diagnosis ICD10 Code Diagnosis Note [id number] KRISTINA Torres [facility] [place] [address] [facility] [address] [place] [address] 11/29/2022 14:35:26 11/29/2022 17:56:00 History of total replacement of bilateral hip joints 1928173924 342490 Z96.643 Health Concerns Section Related Observation LastModified by Organization Detai ls LastModified Time None Recorded Concern Status LastModified by Organization Details LastModified Time None Recorded Advance Directives Directive None Recorded Payers Encounter Date Sequence Insurance Name Policy Number Policy Oliva Covered Member ID Oliva Member ID Guarantor Name 11/29/2022 1 [place] Corry Wynne [id number] Corry Wynne 11/29/2022 2 [employer] (MEDICARE SUPPLEMENT) Corry Wynne [id number] Corry Wynne OBGyn Episode No OBEpisode recorded.
[2024-09-18 14:27] LABS: Iron 109 ug/dL (37-170)
[2024-09-18 14:36] LABS: Percent Iron Saturation 40 % (20-50)
[2024-09-18 15:04] LABS: Anion Gap 8 mmol/L (4-12); Blood Urea Nitrogen 21 mg/dL (7-17); Calcium 9.5 mg/dL (8.4-10.2); Carbon Dioxide 27 mmol/L (22-30); Chloride 104 mmol/L (98-107); Estimated Glomerular Filt Rate > 60; Glucose 90 mg/dL (65-110); Potassium 4.1 mmol/L (3.4-5.0); Sodium 139 mmol/L (137-145)
== END 2024-09-18 12:46 | disposition home or self-care (01) ==
LOC: ANHLAB 12:46
PROVIDERS: PCP Family Medicine; Visit Provider Internal Medicine Hematology & Oncology
DX: D64.9 Anemia, unspecified (principal)
CPT/HCPCS: 36415; 80048; 82607; 82728; 83540; 83550; 85025

== ENCOUNTER 2024-10-09 15:02 | Outpatient (CLI) | payer MEDICARE, OTHER, SELFPAY ==
--- NOTE | ~2024-10-09 | MM_ITS ---
EXAMINATION: MM screening nitza BI w breonna HISTORY: Screening TECHNIQUE: Craniocaudal and mediolateral oblique 3-D tomosynthesis images were obtained and synthetic 2-D images were generated. CAD analysis was submitted and interpreted. COMPARISON: Comparison to multiple prior studies sequentially, with oldest reviewed study dated 03/24. BREAST PARENCHYMAL COMPOSITION: Not dense: There are scattered areas of fibroglandular density. FINDINGS: There is no evidence of suspicious mass, calcification, or architectural distortion to sugg est malignancy in either breast. There has been no suspicious interval change. IMPRESSION: 1. No mammographic evidence of malignancy. 2. Recommend routine screening mammography in one year. BI-RADS Category 1: Negative Reviewed, dictated and finalized at location B.
--- OUTSIDE RECORDS SUMMARY | 2024-10-09 15:06 | XMS_ITS | Clinical Summary ---
Author Organization [facility] Address [address] [place] [address] Care Team Providers Care Water Commissioner Name Role Phone Kameron Babin MD Primary Care Provider [phone] Allergies Active Allergy Reactions Criticality Noted Date [...] Encounters Date Type Department Care Team Description 09/25/2024 1:00 PM CDT Office Visit [facility] Oncology and Hematology [facility] [address] [place] [address] Asael Tirado MD Chronic anemia (Primary Dx) 09/19/2024 Orders Only [facility] Oncology and 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 Gender Identity Not on file Sexual Orientation Not on file Last Filed Vital Signs Vital Sign Reading Time Taken Comments Blood Pressure 115/71 09/25/2024 1:02 PM CDT Pulse 63 09/25/2024 1:02 PM CDT Temperature 35.8 C (96.4 F) 09/25/2024 1:02 PM CDT Respiratory Rate 15 09/25/2024 1:02 PM CDT Oxygen Saturation 95% 09/25/2024 1:02 PM CDT Inhaled Oxygen Concentration - - Weight 61.9 kg (136 lb 6.4 oz) 09/25/2024 1:02 P M CDT Height 152.4 cm (5') 12/15/2021 2:07 PM CDT Body Mass Index 26.64 12/15/2021 2:07 PM CDT Plan of Treatment Upcoming Encounters Date Type Department Care Team (Late st Contact Info) Description 10/01/2025 1:00 PM CDT Office Visit [facility] Oncology and Hematology - [place] [address] [facility] [address] [place] [address] Asael Tirado MD [address] [place] [address] Health Maintenance Due Date Last Done Comments Pre-Diabetes and Diabetes Screening 1955 DTAP/TDAP/TD VACCINES (1 - Tdap) 1974 FIT-DNA Q 3 years 2000 FIT/FOBT Q 1 year 2000 Flex Sig/CT Colonography Q 5 years 2000 PNEUMOCOCCAL VACCINE 50+ YEA RS (1 of 1 - PCV) 2005 ZOSTER VACCINE (1 of 2) 2005 INFLUENZA VACCINE (#1) 2023 02/03/2015 COVID-19 Vaccine (3 - 2023-2 5 season) 2024 08/29/2020, 08/05/2020 BREAST CANCER SCREENING 10/02/2024 10/03/19 24, 10/03/2023, 05/18/2022, Additional history exists COLORECTAL SCREENING 05/01/2025 05/01/2015 Colorectal Cancer Screening 05/01/2025 OSTEOPOROSIS SCREENING 05/18/2027 05/18/2022 RSV VACCINE (60+ or ) (1 - 1-dose 75+ series) 2030 Procedures Procedure Name Priority Date/Time Associated Diagnosis Comments BASIC METABOLIC PANEL Routine 09/18/2024 9:11 AM CDT from Last 3 Months Results * BASIC METABOLIC PANEL (09/18/2024 9:11 AM CDT) Blood us Asael Tirado MD CHEMISTRY ORDERABLES Final Resu lt from Last 3 Months Insurance MEDICARE PART A AND B GENERIC PAYOR MEDICARE PART A AND B GENERIC PAYOR Care Teams Water Commissioner Relationship Specialty Start Date End Date Kameron Babin MD [address] [place] [address] PCP - General Family Practice 06/30/18
--- OUTSIDE RECORDS SUMMARY | 2024-10-09 15:06 | XMS_ITS | Data Portability ---
Author Organization [place] - [facility] [employer] Main Office Address [address] [place] [address] Care Team Providers Care Cleaner Touch Up Worker Name Role Phone DONN CHAPIN Primary Care Provider DONN CHAPIN Referring Provider [phone] Assessment Encounter Date Assessment Date Assessment LastModified [...] range of motion without discomfort. She has fdvm-ei-rysmxdm e tenderness over both trochanteric bursae to [...] XR, hip + pelvis, bilateral 2022 023 [email or web address] [facility] [place], [address], [place], [address], 3 17:56:00 Medication Orders Medrol (Jamey) 4 mg tablets in a dose pack 2022 023 [email or web address] [facility] #[id number], [address] [facility], [place], [place], [id number], 16:12:01 Patient TargetsNo targets recorded. Patient InstructionsNo instructions recorded. Reason for Referral None Reported. Results Created Date Observation Date Name Description Value Unit Range Abnormal Flag Note LastModifiedBy Organization Detail LastModifiedTime 11/30/19 23 XR, hip + pelvi s, bilat eral No observ ation record ed. [email or web address] [facility] [place] [address], [place], [address], 11/29/2022 16:08:05 Result Notes None recorded. 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 Procedures Surgical History None recorded. Imaging Results Imaging Date Name Status LastModified by Organiz ation Details LastModified Time 11/29/2022 XR, hip + pelvis, bilateral completed [email or web address] [facility] [place] [address], [place], [address], 11/29/2022 16:08:05 Procedure Notes None recorded. Medical [...] Available Not Available Not Available Flulaval Quad 3436-1037 60 mcg (15 mcg x 4)/0.5 mL IM suspension ADM 0.5ML IM UTD 11/29 completed Not Available Not Available Not Available Vitals Date Recorded Body height Body mass index (BMI) Body weight Provider Name and Address Organization Details Last Updated DateTime 11/29/2022 149.86 cm 28.5 kg/m2 22040.52 g BRETT Trujillo [place] [facility] [employer] [facility] 11/29/2022 15:25:40 Social History None recorded. Functional Status Question Answer Note LastModified by Organization D etails LastModified Time What is your level of alcohol consumption? None [email or web address] Information not available 11/29/2022 Mental Status None recorded. Family History Relationship Description Onset Age of this Age Resolved Age Notes LastModified by Organization Details LastModified Time Father Heart disease [email or web address] Not available 2022 15:11:22 Father Family history of malignant neoplasm [email or web address] Not available 2022 15:16:32 Father Hypertensive disorder [email or web address] Not available 2022 15:16:59 Sister Family history of stroke [email or web address] Not available 2022 15:16:19 Mother Hypertensive disorder Not available 2022 15:16:59 Paternal Grandmother Diabetes mellitus Not available 2022 15:17:16 Medical History Condition Response ARTHRITIS Y HYPERTENSION Y Gynecological HistoryNo gynecological history recorded. Obstetrics History GPAL:G 0 P 0 0 0 0 Past Encounters Encounter ID Performer Location Encounter Start Date Encounter Closed Date Diagnosis/Indication Diagnosis SNOMED-CT Code Diagnosis ICD10 Code Diagnosis Note [id number] Oliverio Naik MD [facility] [place] [address] [facility] [address] [place] [address] 11/29/2022 14:35:26 11/29/2022 17:56:00 History of total replacement of bilateral hip joints 5619459651 805982 Z96.643 Health Concerns Section Related Observation LastModified by Organization Detai ls LastModified Time None Recorded Concern Status LastModified by Organization Details LastModified Time None Recorded Advance Directives Directive None Recorded Payers Encounter Date Sequence Insurance Name Policy Number Policy Oliva Covered Member ID Oliva Member ID Guarantor Name 11/29/2022 1 [place] Corry Wynne [id number] Corry Wynne 11/29/2022 2 [employer] (MEDICARE SUPPLEMENT) Corry Wynne [id number] Corry Wynne OBGyn Episode No OBEpisode recorded.
--- OUTSIDE RECORDS SUMMARY | 2024-10-09 15:06 | XMS_ITS | Clinical Summary ---
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
== END 2024-10-09 15:03 | disposition home or self-care (01) ==
LOC: ANHIMG 15:04
PROVIDERS: PCP Family Medicine; Visit Provider Obstetrics & Gynecology
DX: Z12.31 Encounter for screening mammogram for malignant neoplasm of breast (principal)
CPT/HCPCS: 77063; 77067